=== PATIENT | female | born 1980 | race African-American/Black ===

== ENCOUNTER 2024-09-11 23:49 | Emergency (ER) | payer SELFPAY ==
[~2024-09-11] VITALS: Ht 154.9 cm; Wt 72.0 kg
[2024-09-12 00:23] VITALS: TEMP 98.6
[2024-09-12] MEDS: HYDROCODONE/ACETAMINOPHEN 5-325 MG TABLET PO ONE (01:13)
[2024-09-12] MEDS: LIDOCAINE 1% 10 ML VIAL SQ ONE (01:14)
[2024-09-12] MEDS: CEPHALEXIN MONOHYDRATE 500 MG CAPSULE PO ONE (02:58)
[2024-09-12 03:18] VITALS: BP 136/71; PULSE 86; RESP 16; O2SAT 96
[2024-09-12] MEDS ORDERED: ACET-3385 PO (03:34)
[2024-09-12] MEDS ORDERED: IBUP-1506 PO (03:34)
[2024-09-12] MEDS ORDERED: CEPH-558 PO (03:34)
== END 2024-09-12 04:41 | disposition home or self-care (01) ==
LOC: EMS 23:49
DX: S62.635B Displaced fracture of distal phalanx of left ring finger, initial encounter for open fracture (principal); W23.0XXA Caught, crushed, jammed, or pinched between moving objects, initial encounter; Y93.89 Activity, other specified; Y92.89 Other specified places as the place of occurrence of the external cause; Y99.8 Other external cause status
CPT/HCPCS: 99283; 29130; 73130; J3490; 12001